=== PATIENT | male | born 1995 | race Caucasian/White ===

== ENCOUNTER 2020-05-02 09:57 | Emergency (ER) | payer BC ==
[~2020-05-02] VITALS: Ht 175.3 cm; Wt 81.6 kg
[2020-05-02 10:00] VITALS: BP_SYST 139
[2020-05-02] MEDS: DIPH-TET-PERTUS Vaccine 0.5 ML VIAL (ADACEL) I.M. ONE (10:54)
[2020-05-02 11:00] VITALS: BP_SYST 139
[2020-05-02] MEDS ORDERED: DIPH-TET-PERTUS Vaccine 0.5 ML VIAL (ADACEL) I.M. ONE (11:12)
== END 2020-05-02 11:00 | disposition home or self-care (01) ==
LOC: SED 09:57
DX: S01.01XA Laceration without foreign body of scalp, initial encounter (principal); R03.0 Elevated blood-pressure reading, without diagnosis of hypertension; W22.8XXA Striking against or struck by other objects, initial encounter; Y93.89 Activity, other specified; Y92.59 Other trade areas as the place of occurrence of the external cause; Y99.8 Other external cause status
CPT/HCPCS: 90715; 99283